=== PATIENT | female | born 1955 | race Caucasian/White ===

== ENCOUNTER 2022-08-14 14:30 | Outpatient (RCR) | payer MEDICARE, BC, SELFPAY | END 2022-08-17 08:18 | disposition home or self-care (01) | PROVIDERS: PCP Physician Assistant; Visit Provider Physician Assistant | DX: M25.551 Pain in right hip (principal); M77.11 Lateral epicondylitis, right elbow; Z51.89 Encounter for other specified aftercare | CPT/HCPCS: 97035; 97110; 97140; 97162; 97165; 97535; X5282 ==

== ENCOUNTER 2024-09-09 22:40 | Emergency (ER) | payer MEDICARE, BC, SELFPAY ==
--- OUTSIDE RECORDS SUMMARY | 2024-09-09 22:43 | XMS_ITS | Data Portability ---
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 We discussed etiology, activity modifications, home care, and other treatment options. Initially, it is recommended that the patient receive in-office treatment 1 times per week for 8 weeks at which time a re-evaluation will be performed to determine an appropriate change in plan. Initially, treatment will focus on joint manipulation to restore range of motion and reduce pain. We will slowly progress to therapeutic exercises and activities to improve function, strength, and stability may also be used as warranted. If the patient is not responding as expected, more invasive procedures will be discussed along with a referral. All considerations above were discussed with the patient and questions answered to satisfaction. If the patient should have any additional questions, or should the condition evolve or worsen, the patient should not hesitate to contact our office. Not available 05/01/2024 14:49:27 06/06/2024 06/06/2024 ASSESSMENT: Patient is a good candidate for conservative care and the prognosis is for a favorable outcome that achieves the patients' goals. We discussed etiology, activity modifications, home care, and other treatment options. Initially, it is recommended that the patient receive in-office treatment 1 times per week for 8 weeks at which time a re-evaluation will be performed to determine an appropriate change in plan. Initially, treatment will focus on joint manipulation to restore range of motion and reduce pain. We will slowly progress to therapeutic exercises and activities to improve function, strength, and stability may also be used as warranted. If the patient is not responding as expected, more invasive procedures will be discussed along with a referral. All considerations above were discussed with the patient and questions answered to satisfaction. If the patient should have any additional questions, or should the condition evolve or worsen, the patient should not hesitate to contact our office. Not available 06/07/2024 10:44:47 06/14/2024 06/14/2024 ASSESSMENT: Patient is a good candidate for conservative care and the prognosis is for a favorable outcome that achieves the patients' goals. We discussed etiology, activity modifications, home care, and other treatment options. Initially, it is recommended that the patient receive in-office treatment 1 times per week for 8 weeks at which time a re-evaluation will be performed to determine an appropriate change in plan. Initially, treatment will focus on joint manipulation to restore range of motion and reduce pain. We will slowly progress to therapeutic exercises and activities to improve function, strength, and stability may also be used as warranted. If the patient is not responding as expected, more invasive procedures will be discussed along with a referral. All considerations above were discussed with the patient and questions answered to satisfaction. If the patient should have any additional questions, or should the condition evolve or worsen, the patient should not hesitate to contact our office. Not available 06/14/2024 18:07:31 Plan of Treatment Reminders Order Date Submit Date Provider Last Modified By Organization Details Last Modified Time Details Appointments None record ed. Lab None record ed. Referral None record ed. Procedures None record ed. Surgeries None record ed. Imaging None record ed. Medication Orders None record ed. Patient TargetsNo targets recorded. Patient InstructionsNo instructions recorded. Reason for Referral None Reported. Problems Name Problem SNOMED Code Status Onset Date Resolution Date Notes Provider Name and Address Organization Details Recorded Time Neck pain 92593832 Active 2023 Russell Hunter DC [address] [place] [address], [place], [address] , [facility] 4 14:49:28 Cervical segmental dysfunction 946493276 Active 2023 Not Available [facility] 11:21:42 Thoracic segmental dysfunction 744261704 Active 2023 Russell Hunter DC [address] [place] [address], [place], [address] , [facility] 4 14:49:28 Lumbar segmental dysfunction 558730210 Active 2023 Russell Hunter [place] [address], [place], [address] , [facility] 4 14:49:28 Lesion of lumbar spine 901436390 Active 2023 Russell [place], [place] [address], [place], [address] , [facility] 4 14:49:29 Problem Notes None recorded. Procedures Surgical History Date Name Laterality Status Provider Name and Address Organization Details Recorded Time 5 10746: Spinal manipulation , 3 to 4 regions completed [facility] [place], [place] [address], [place], [address], [facility] 06/14/2024 18:07:30 5 67279: Spinal manipulation , 3 to 4 regions completed [facility] [place], [place] [address], [place], [address], [facility] 06/07/2024 10:44:47 4 96059: Spinal manipulation , 3 to 4 regions completed [facility] Janak [place], [place] [address], [place], [address], [facility] 05/01/2024 14:49:54 Imaging Results None recorded. Procedure Notes None recorded. Medical Equipment None Reported. Medications Name Sig Start Date Stop Date Status Note LastModified by Organization Details LastModified Time cephalexin 500 mg capsule TAKE ONE CAPSULE BY MOUTH TWICE DAILY for 3 days* active Not Available Not Available No t Available doxycycline hyclate 100 mg tablet TAKE ONE TABLET BY MOUTH TWICE DAILY BEFORE MEALS* active Not Available Not Available No t Available azithromycin 500 mg tablet TAKE ONE TABLET BY MOUTH EVERY 24 HOURS* active Not Available Not Available No t Available Vitals None Recorded Social History None recorded. Functional Status None recorded. Mental Status None recorded. Family History Nothing Reported. Medical History No medical history recorded. Gynecological HistoryNo gynecological history recorded. Obstetrics History GPAL:G 0 P 0 0 0 0 Past Encounters Encounter ID Performer Location Encounter Start Date Encounter Closed Date Diagnosis/Indication Diagnosis SNOMED-CT Code Diagnosis ICD10 Code Diagnosis Note [id number] Russell Hunter DC [facility] & [address] [facility] [place] [address] 05/01/2024 13:05:00 05/01/2024 14:53:34 Cervical segmental dysfunction 362030011 M99.01 Neck pain 48997583 M54.2 Thoracic s egmental dysfunction 779295269 M99.02 Lumbar seg mental dysfunction 322606421 M99.03 Lesion of lumbar spine 430294818 M99.01 [id number] Russell Hunter DC [facility] [address] [place] [address] 06/06/2024 17:17:13 06/07/2024 14:54:51 Cervical segmental dysfunction 728197395 M99.01 Neck pain 39883798 M54.2 Thoracic s egmental dysfunction 491741044 M99.02 Lumbar seg mental dysfunction 182569444 M99.03 Lesion of lumbar spine 429780794 M99.01 [id number] Russell Hunter DC [address] [place] [address] 06/14/2024 09:58:59 06/14/2024 18:13:24 Cervical segmental dysfunction 096938102 M99.01 Neck pain 36870084 M54.2 Thoracic s egmental dysfunction 607970944 M99.02 Lumbar seg mental dysfunction 846983988 M99.03 Lesion of lumbar spine 408596227 M99.01 Health Concerns Section Related Observation LastModified by Organization Detai ls LastModified Time None Recorded Concern Status LastModified by Organization Details LastModified Time None Recorded Advance Directives Directive None Recorded Payers Encounter Date Sequence Insurance Name Policy Number Policy Uribe Covered Member ID Uribe Member ID Guarantor Name 05/01/[address] [facility] [id number] Melissa Valdez [id number] Melissa Valdez 06/06/2024 2 [facility] [id number] Melissa Valdez [id number] Melissa Valdez 06/06/2024 1 [place] [employer] Melissa Valdez [id number] Melissa Valdez 06/14/2024 2 [facility] [id number] Melissa Valdez [id number] Melissa Valdez 06/14/2024 1 [place] [employer] [facility] Melissa Valdez [id number] Melissa Valdez Notes Date Note Type Note Provider Name and Address Organization Details Recorded Time 05/01/2024 text/html HPI - Cervical SpineReported bypatient.Location: midline Quality:aching Severity:moderate Duration:2 weeks Timing:gradual Alleviating Factors:ice Aggravating Factors:sitting Associated Symptoms:no numbness/tingling Patient presents with mid-back pain. Russell Janaktodd Hunter DC [address], [place], [address], [facility] 05/01/2024 14:50:09 06/06/2024 text/html HPI - Cervical SpineReported bypatient.Location: midline Quality:aching Severity:moderate Duration:2 weeks Timing:gradual Alleviating Factors:ice Aggravating Factors:sitting Associated Symptoms:no numbness/tingling Patient presents with mid-back pain. Russell Janaktodd Hunter [place] [address], [place], [address], [facility] 06/07/2024 10:45:15 06/14/2024 text/html HPI - Cervical SpineReported bypatient.Location: midline Quality:aching Severity:moderate Duration:2 weeks Timing:gradual Alleviating Factors:ice Aggravating Factors:sitting Associated Symptoms:no numbness/tingling Patient presents with mid-back pain. Russell Briceno ALEX Hunter [address], [place], [address], [facility] 06/14/2024 18:07:49 OBGyn Episode No OBEpisode recorded.
--- OUTSIDE RECORDS SUMMARY | 2024-09-09 22:43 | XMS_ITS | Clinical Summary ---
Author Organization [facility] Address [address] [place] [id number] Care Team Providers Care Process Pumper Name Role Phone Gabby Franco Primary Care Provider [phone] Allergies Active Allergy Reactions Criticality Noted Date Comments Amoxicillin Rash 10/10/2014 Homeopathic Products 08/13/2008 Dust Mites 08/13/2008 Fish Containing Products 08/13/2008 Tree Nut 08/13/2008 Benzocaine-Triclosan 05/16/2007 Medications multivitamin (MVI) tablet Take 1 tablet by mouth once daily. 0 05/01/2010 Active calcium carbonate-vitam in D3, 600 mg-125 unit, (CALCIUM 600 + D) tablet Take 1 tablet by mouth 2 times daily with meals. 0 07/15/2015 Active Lysine 1,000 mg tablet Take as needed for cold sores 0 12/03/2015 Active Flaxseed powd Two TBSP ground flaxseed per day 1 Bottle 11/17/2018 Active [id number]-EPA -Fish Oil 1,000 mg (120 mg-180 mg) cap Take 1 Capsule (1,000 mg) by mouth. 0 11/21/2020 Active Active Problems Problem Noted Date Diagnosed Date Redundant colon 06/03/2023 Actinic keratoses 06/03/2023 Hyperlipidemia 06/03/2023 History of depression 06/03/2023 Non-celiac gluten sensitivity 06/03/2023 Osteopenia 06/09/2022 Overview (06/09/2022): Bone density May 2022. Repeat 3-5 years. Cellulitis of skin 08/20/2019 Assessment & Plan (08/20/2019 4:02 PM CDT): Pinky finger on R hand has been red and swollen since about . L. pinky started getting red and swollen about August 04. Starting to get sores inside my mouth. Tried topical Cortizone - 10 on fingers. Trying benedryl or claritin since August 07. No relief. Have allergies, but can't pinpoint what this is No blisters. DIP joint distal, red, elizabet next to finger nail. Itched just one day. Asymmetric, not the whole tip. L hand is involved on top of finger. Now today tip of 3rd finger R. Mostly the pad. Bright red dot in one location. Tender. Areas of redness actually swollen and disfiguring the DIP joint however the whole joint does not appear to be inflamed. Hurts to bend joint some. No fever. Feels mostly in the skin. Skin is smooth. Not scaley. Red like a burn. No spreading redness. No streaking. No other rash. Has raynauds : some redness before but resolves. Some history of cold sores w eating wheat. Started after eating peanuts but no oral swelling/wheezing/ hives. No coughing. No other illness. Current oral sores feel similar to her eating bread. No other joints elsewhere. No vaginal symptoms . Mouth seems unrelated. Routine adult health maintenance 12/06/2018 Overview (01/17/2019): Incompete Colonoscopy 11/2018 redundant colon, recommend CT colonography CT colon 12/2018 normal, repeat every 5 years Bilateral low back pain 07/31/2014 Overview (07/31/2014): Disc space narrowing at L4-5 and L5-S1 Raynaud's syndrome 11/20/2009 Overview (11/20/2009): Primarily affects hands only. Pulmonary nodules 02/29/2008 Allergic rhinitis, cause unspecified 02/28/2008 Overview (01/26/2011): Contributes to pulmonary congestion 01/26/2011 Resolved Problems Problem Noted Date Diagnosed Date Resolved Date Depression, recurrent 06/02/20222023 Thyroid nodule 11/21/2018 06/03/2023 Overview (11/21/2018): Two on right side, US done November 2018. These were seen on old CT scans, nodules are very likely benign. Repeat US thyroid in one year. Plantar wart of right foot 09/14/2011 0 06/03/2023 Anemia, unspecified 01/26/2011 06/02/19 23 Fibroid 11/20/2009 06/02/2022 Overview (11/20/2009): asymptomatic Routine general medical exam ination at a health care facility 02/29/2008 02/03/2012 Overview (11/20/2009): colonoscopy 04/2008 recheck 10 yrs Viral warts, unspecified 02/29/2008 Upper back pain 02/28/2008 02/03/2012 Encounters Date Type Department Care Team Description 09/05/2024 6:56 AM CDT - 09/05/2024 11:59 PM CDT Hospital Encounter [facility] [address] [place] [address] Gabby Franco, Redundant colon; Screening for colon cancer 09/05/2024 Travel 08/16/2024 9:20 AM CDT Ancillary Procedure [facility] [address] [place] [address] 08/16/2024 8:20 AM CDT Office Visit [facility] [address] [place] [address] Gabby Franco DO Medicare ANNUAL (subsequent) Visit (68 year old, c/o vision changes, is seeing eye doctor on 08/21.); Immunization/Injecti on 08/16/2024 Travel from Last 3 Months Immunizations Immunization Administration Dates Next Due COVID-19 VACCINE SPIKEVAX (M ODERNA 50MCG/0.5ML) 12YO+ PFS 08/16/2024 COVID-19 vaccine ([employer] NTech 30mcg/0.3mL) 12YO+ BIVALENT PF, MDV 09/21/2022,03/30/2022 COVID-19 vaccine ([employer] NTech 30mcg/0.3mL) PF, MDV 04/25/2021,09/12/2020,08/22/2020 HepA-HepB (Twinrix) 11/28/2002,06/23/2002,2002 Influenza, Inactivated IIV3 (Age 65+ Years) Preserv Free 05/29/2024 Pneumococcal Conj 20-valent (Prevnar 20) 025 Td (Age >=7 Years) 07/04/2004,01/13/1995 Tdap 11/21/2020,01/26/2011 Typhoid (injectable) 05/29/2024 Typhoid, Unspecified 05/23/2002 Zoster (Shingrix-RZV, recombinant) 01/23/2021, Family History Medical History Relation Name Comments Hyperlipidemia Brother 3 Good Health Daughter 2 Cancer Father Deng Skin Other Father Brook Parkinson's; Hi p Fx; CVA Stroke Father Brook Stroke Maternal Grandfather Heart Disease Maternal Grandmother Cancer Mother Summer Skin Stroke Mother Summer Heart Disease Paternal Grandfather 30 yea r Heart Disease Paternal Grandmother 30 yo Other Paternal Grandmother hip fx Stroke Paternal Grandmother Hyperlipidemia Sister 3 Alcohol/Drug Son 2 alcoholic: andres n since 04/2009 Cancer-breast No Family History Cancer-ovarian No Family History Relation Name Status Comments Brother 1 Shon Alive Brother 2 Dewayne Alive Brother 3 Daughter 1 Alive Daughter 2 Father Deng (Age 69) Blood Clot p Hip Fracture Maternal Grandfather (Age 66) st roke Maternal Grandmother Mother Summer (Age 76) Blood Clot p Hip Fracture Paternal Grandfather Paternal Grandmother Sister 1 Marisa Alive Sister 2 Roxanna Alive Sister 3 Son 1 Alive Son 2 Social History Tobacco Use Types Packs/Day Years Used Date Smoking Tobacco: Never Smokeless Tobacco: Never Tobacco Cessation:Counseling Given: Yes Alcohol Use Standard Drinks/Week Comments Yes 0 (1 standard drink = 0.6 oz pur e alcohol) rare: socially PHQ-2 Answer Date Recorded PHQ-2 TOTAL SCORE 0 08/16/2024 Social Connections Answer Date Recorded Do you often feel lonely or isolated from those around you? 0 08/30/2023 Financial Resource Strain Answer Date R ecorded Difficulty of Paying Living Expenses 3 08/30/2023 Difficulty of Paying Living Expenses Not on file 08/30/2023 Food Insecurity Answer Date Recorded Do you worry your food will run out before you are able to buy more? 1 08/30/2023 Transportation Needs Answer Date Record ed Does lack of transportation keep you from medica l appointments? 1 08/30/2023 Does lack of transportation keep you from work, meetings or getting things that you need? 1 08/30/2023 Housing Stability Answer Date Recorded What is your housing situation today? 1 08/30/2023 Utilities Answer Date Recorded Do you have trouble paying f or utilities (for example, heat, electricity, water, phone)? 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 Not on file Not on file Obstetrics History Para Term AB IAB SAB Ectopic Multiple Livin g Live Births 2 2 2 2 2 Date Outcome GA Total Labor Labor/2nd/3rd Weight Sex Type Anes PTL Sherry A1 A5 Name Clin 09/17 Term 40w 0d M Vag Living Sarabjit 08/08 Term 40w 0d F Vag Living Aicha Last Filed Vital Signs Vital Sign Reading Time Taken Comments Blood Pressure 105/72 08/16/2024 8:24 AM CDT Pulse 53 08/16/2024 8:24 AM CDT Temperature 36.9 C (98.4 F) 08/30/2023 4:13 PM CDT Respiratory Rate 16 11/25/2015 1:32 PM CDT Oxygen Saturation 100% 05/29/2024 9:31 AM PARLIAMENTARY LIBRARIAN Inhaled Oxygen Concentration - - Weight 68.3 kg (150 lb 9.6 oz) 08/16/2024 8:24 A M CDT Height 170.8 cm (5' 7.24) 08/16/2024 8:24 AM CD T Body Mass Index 23.42 08/16/2024 8:24 AM CDT Plan of Treatment Health Maintenance Due Date Last Done Comments BMI (ht and wt on same day) for age 18+ 08/16/2025 08/16/2024, 06/03/2023, 06/02/2022, Additional history exists Depression screening for age 12+ 08/16/2025 08/16/2024, 06/03/2023, 08/10/2022, Additional history exists Mammogram for age 45-75 08/16/2025 08/17/19, 06/03/2023, 06/02/2022, Additional history exists Medicare Wellness for age 65+ 08/17/2025, 06/03/2023, 06/02/2022 Lipids for age 45-75 06/03/2028 06/03/2023, 06/02/2022, 11/21/2020, Additional history exists CT Colonography for age 45-75 09/05/2029, 01/17/2019, 12/23/2018 (Completed outside of [facility]), Additional history exists Tetanus booster 11/21/2030 11/21/2020, 01/08, 07/04/2004, Additional history exists RSV vaccine for adults or (1 - 1-dose 75+ series) 12/03/2031 Hepatitis C screening for ag e 18-79 Completed 12/01/2013 Tdap Completed 11/21/2020, 01/26/2011 Zoster (shingles) series for age 50+ Completed 01/23/2021, 11/21/2020 DEXA/DXA scan for age 65+ Completed 06/03/2022, COVID-19 vaccine series Completed 08/17/19, 01/25/2024, 04/09/2023, Additional history exists Pneumococcal series for age 50+ Completed Procedures Procedure Name Priority Date/Time Associated Diagnosis Comments CT ABDOMEN PELVIS COLONOGRAPHY DIAGNOSTIC WO Routine 09/05/2024 7:42 AM CDT Redundant colon Screening for colon cancer XR MAMMO BILAT SCREENING Routine 08/16/2024 9:36 AM CDT Visit for screening mammogram MAGNESIUM Routine 08/16/2024 9:06 AM CDT Nausea COMP METABOLIC PANEL Routine 08/16/2024 9:06 AM CDT Nausea LIPID PANEL W REFLEX MEASURED LDL Routine 06/03/2023 9:27 AM PARLIAMENTARY LIBRARIAN Hyperlipidemia, unspecified hyperlipidemia type XR DXA BONE DENSITY 2 SITES AXIAL Routine 06/03/2022 9:55 AM PARLIAMENTARY LIBRARIAN Menopause ANTI HCV Routine 12/01/2013 2:50 PM CDT Need for hepatitis C screening test from Last 3 Months or Most Recently Relevant to Health Maintenance Results * CT ABDOMEN PELVIS COLONOGRAPHY DIAGNOSTIC WO (09/05/2024 7:42 AM CDT) Anatomical Region Laterality Modality Abdomen, Pelvis Computed Tomogra phy 09/06/2024 9:25 AM CDT Addenda Addendum by Josh Barnes MD on 09/06/2024 3:25 PM CDT INDICATION: Colon cancer screen. Redundant colon. TECHNIQUE: CT SCAN OF THE ABDOMEN AND PELVIS CT COLONOSCOPY PROTOCOL Cathartic prep. No IV contrast. Supine and prone image volumes were obtained. Carbon dioxide insufflation was performed through a rectal catheter. Images were reviewed in 2D, and 3D visualization was performed using a [employer] workstation. FINDINGS: SCAN QUALITY: Markedly redundant colon. Moderate retained fluid. Portions of the sigmoid colon are not completely distended. The prone images show portions of the transverse colon and sigmoid which are not completely distended. POLYPS: No significant colonic polyps. EXTRACOLONIC STRUCTURES: Lung bases are clear. Liver, spleen, pancreas, adrenal glands, kidneys: Unremarkable. Slightly ectopic right kidney Lymph nodes: No adenopathy. Small bowel: Normal caliber. Pelvis: Bladder is unremarkable. A 4.5 centimeter soft tissue density right-sided exophytic well-circumscribed mass is present from the uterus which is likely a fibroid. IMPRESSION: 1. No colonic polyps identified. 2. Limitations of the study are described above. 3. 4.5 centimeter probable right uterine fibroid this was noted on prior exam 06/09/2022 measured at 2.1 centimeters. Follow-up pelvic ultrasound as clinically indicated. C-RADS: CT Colonography C-RADS Category: C1, E2 Colonic classification C0 : inadequate study C1 : normal colon / benign lesion - routine screening every 5 to 10 years to be continued C2 : indeterminate polyp - surveillance or colonoscopy 6 - 9 mm in diameter LESS THAN 3 in number C3 : possibly advanced adenoma - follow up colonoscopy GREATER THAN 10 mm in diameter GREATER THAN 3 in number with each 6 - 9 mm C4 : colonic mass likely malignant - urgent surgical referral Has associated luminal narrowing Has extra colonic extension Extra-colonic classification E0 : limited exam E1 : normal exam or normal variant E2 : clinically unimportant finding (e.g., simple liver cyst, vertebral hemangioma) -no work up required E3 : likely unimportant or incompletely characterized finding (e.g., minimally complex renal cyst) -referral depends on local center. E4 : potentially important finding (e.g., solid renal mass) - communicate to referring physician Please note that all CT scans at this facility use dose modulation, iterative reconstruction, and/or weight-based dosing when appropriate to reduce radiation dose to as low as reasonably achievable. 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 Dictated by Josh Barnes MD @ Sep 06 2024 3:24PM (Electronically Signed) Impressions 09/06/2024 9:25 AM CDT 1. No colonic polyps identified. 2. Limitations of the study are described above. 3. 4.5 centimeter probable right uterine fibroid this was noted on prior exam 06/09/2022 measured at 2.1 centimeters. Follow-up pelvic ultrasound as clinically indicated. C-RADS: CT Colonography C-RADS Category: C1, E2 Colonic classification C0 : inadequate study C1 : normal colon / benign lesion - routine screening every 5 to 10 years to be continued C2 : indeterminate polyp - surveillance or colonoscopy 6 - 9 mm in diameter LESS THAN 3 in number C3 : possibly advanced adenoma - follow up colonoscopy GREATER THAN 10 mm in diameter GREATER THAN 3 in number with each 6 - 9 mm C4 : colonic mass likely malignant - urgent surgical referral Has associated luminal narrowing Has extra colonic extension Extra-colonic classification E0 : limited exam E1 : normal exam or normal variant E2 : clinically unimportant finding (e.g., simple liver cyst, vertebral hemangioma) -no work up required E3 : likely unimportant or incompletely characterized finding (e.g., minimally complex renal cyst) -referral depends on local center. E4 : potentially important finding (e.g., solid renal mass) - communicate to referring physician Please note that all CT scans at this facility use dose modulation, iterative reconstruction, and/or weight-based dosing when appropriate to reduce radiation dose to as low as reasonably achievable. Dictated by Josh Barnes MD @ 09/06/2024 9:25:58 AM (Electronically Signed) Narrative 09/06/2024 9:25 AM CDT For Patients: As a result of the Cures Act, medical imaging exams and procedure reports are released immediately into your electronic medical record. You may view this report before your referring provider. If you have questions, please contact your health care provider. INDICATION: Colon cancer screen. Redundant colon. TECHNIQUE: CT SCAN OF THE ABDOMEN AND PELVIS CT COLONOSCOPY PROTOCOL Cathartic prep. No IV contrast. Supine and prone image volumes were obtained. Carbon dioxide insufflation was performed through a rectal catheter. Images were reviewed in 2D, and 3D visualization was performed using a [employer] workstation. FINDINGS: SCAN QUALITY: Markedly redundant colon. Moderate retained fluid. Portions of the sigmoid colon are not completely distended. The prone images show portions of the transverse colon and sigmoid which are not completely distended. POLYPS: No significant colonic polyps. EXTRACOLONIC STRUCTURES: Lung bases are clear. Liver, spleen, pancreas, adrenal glands, kidneys: Unremarkable. Slightly ectopic right kidney Lymph nodes: No adenopathy. Small bowel: Normal caliber. Pelvis: Bladder is unremarkable. A 4.5 centimeter soft tissue density right-sided exophytic well-circumscribed mass is present from the uterus which is likely a fibroid. Procedure Note Josh Barnes MD - 09/06/2024 For Patients: As a result of the Cures Act, medical imagingexams and procedure reports are released immediately into your electronicmedical record. You may view this report before your referring provider.If you have questions, please contact your health care provider. INDICATION: Colon cancer screen. Redundant colon. TECHNIQUE: CT SCAN OF THE ABDOMEN AND PELVIS CT COLONOSCOPY PROTOCOL Cathartic prep. No IV contrast. Supine and prone image volumes were obtained. Carbon dioxide insufflation was performed through a rectal catheter. Images were reviewed in 2D, and 3D visualization was performed using [employer] workstation. FINDINGS: SCAN QUALITY: Markedly redundant colon. Moderate retained fluid. Portions of the sigmoidcolon are not completely distended. The prone images show portions of thetransverse colon and sigmoid which are not completely distended. POLYPS: No significant colonic polyps. EXTRACOLONIC STRUCTURES: Lung bases are clear. Liver, spleen, pancreas, adrenal glands, kidneys: Unremarkable. Slightlyectopic right kidney Lymph nodes: No adenopathy. Small bowel: Normal caliber. Pelvis: Bladder is unremarkable. A 4.5 centimeter soft tissue density right- sidedexophytic well-circumscribed mass is present from the uterus which islikely a fibroid. IMPRESSION: 1. No colonic polyps identified. 2. Limitations of the study are described above. 3. 4.5 centimeter probable right uterine fibroid this was noted on priorexam 06/09/2022 measured at 2.1 centimeters. Follow-up pelvic ultrasoundas clinically indicated. C-RADS: CT Colonography C-RADS Category: C1, E2 Colonic classification C0 : inadequate study C1 : normal colon / benign lesion - routine screening every 5 to 10 yearsto be continued C2 : indeterminate polyp - surveillance or colonoscopy 6 - 9 mm in diameter LESS THAN 3 in number C3 : possibly advanced adenoma - follow up colonoscopy GREATER THAN 10 mm in diameter GREATER THAN 3 in number with each 6 - 9 mm C4 : colonic mass likely malignant - urgent surgical referral Has associated luminal narrowing Has extra colonic extension Extra-colonic classification E0 : limited exam E1 : normal exam or normal variant E2 : clinically unimportant finding (e.g., simple liver cyst, vertebralhemangioma) -no work up required E3 : likely unimportant or incompletely characterized finding (e.g.,minimally complex renal cyst) -referral depends on local center. E4 : potentially important finding (e.g., solid renal mass) - communicateto referring physician Please note that all CT scans at this facility use dose modulation,iterative reconstruction, and/or weight-based dosing when appropriate toreduce radiation dose to as low as reasonably achievable. Dictated by Josh Barnes MD @ 09/06/2024 9:25:58 AM (Electronically Signed) Gabby Franco DO CT Edited Res ult - Final * XR MAMMO BILAT SCREENING (08/16/2024 9:36 AM CDT) Anatomical Region Laterality Modality BREASTS, Breast Left, Breast Right Bilateral Mammography Impressions 08/16/2024 1:44 PM CDT There is no radiographic evidence for malignancy. Recommend annual mammograms. MAMMOGRAM ASSESSMENT: ACR 1 Negative PATIENTS: You will also receive a letter with your examination results in an easy to read format. If you have questions about your results, please contact your referring provider. Narrative 08/16/2024 1:44 PM CDT For Patients: As a result of the Cures Act, medical imaging exams and procedure reports are released immediately into your electronic medical record. You may view this report before your referring provider. If you have questions, please contact your health care provider. XR MAMMO BILAT SCREENING [[id number]] CLINICAL HISTORY: This is an asymptomatic 68 y.o. patient. INDICATION FOR EXAM: Mammogram Screening. TECHNIQUE: CC and MLO views were obtained. This study was evaluated with the assistance of Computer-Aided Detection. COMPARISON FILM: Yes 06/03/23 [facility] 06/02/22 [facility] FINDINGS: There are scattered areas of fibroglandular density. There are no dominant masses, suspicious micro calcifications or areas of architectural distortion. Gabby Franco DO MAMMO Final Resu lt * MAGNESIUM (08/16/2024 9:06 AM CDT) MAGNESIUM 2.3 1.5 - 2.5 mg/dL [facility] Blood BLOOD SPECIMEN / Unknown 08/16/2024 9:06 AM CDT 08/16/2024 9:07 AM CDT Gabby Franco DO CHEMISTRY Final Resu lt [facility] [address] [place] [address], Gaby [facility] [address] [place] [address] * COMP METABOLIC PANEL (08/16/2024 9:06 AM CDT) [facility] GLUCOSE 82 65 - 99 mg/dL [facility] Comment: Fasting reference interval UREA NITROGEN (BUN) 13 7 - 25 mg/dL [facility] CREATININE 0.94 0.50 - 1.05 mg/dL [facility] EGFR 67 > OR = 60 mL/min/1. 73m2 [facility] BUN/CREATININE RATIO SEE NOTE: - (calc) [facility] Comment: Not Reported: BUN and Creatinine are within reference range. SODIUM 142 135 - 146 mmol/L [facility] POTASSIUM 4.5 3.5 - 5.3 mmol/L [facility] CHLORIDE 104 98 - 110 mmol/L [facility] CARBON DIOXIDE 30 20 - 32 mmol/L [facility] CALCIUM 9.5 8.6 - 10.4 mg/dL [facility] PROTEIN, TOTAL 7.0 6.1 - 8.1 g/dL [facility] ALBUMIN 4.5 3.6 - 5.1 g/dL [facility] GLOBULIN 2.5 1.9 - 3.7 g/dL (calc) [facility] ALBUMIN/GLOBULIN RATIO 1.8 1.0 - 2.5 (calc) [facility] BILIRUBIN, TOTAL 0.8 0.2 - 1.2 mg/dL [facility] ALKALINE PHOSPHATASE 61 37 - 153 U/L [facility] AST 18 10 - 35 U/L [facility] ALT 12 6 - 29 U/L [facility] Blood BLOOD SPECIMEN / Unknown 08/16/2024 9:06 AM CDT 08/16/2024 9:07 AM CDT Gabby Diana Franco DO CHEMISTRY Final Resu lt [facility] [address] [place] [address], [place] [phone] [facility] [address] [place] [address] * (ABNORMAL) LIPID PANEL W REFLEX MEASURED LDL (06/03/2023 9:27 AM PARLIAMENTARY LIBRARIAN) [facility] CHOLESTEROL,TOTAL 268(H) 100 - 199 mg/dL 06/03/2023 5:38 PM PARLIAMENTARY LIBRARIAN [facility] Comment: Cholesterol, Total Reference Ranges Desirable <200 mg/dL Borderline 200-239 mg/dL High >=240 mg/dL TRIGLYCERIDES 88 <150 mg/dL 06/03/2023 5:38 PM PARLIAMENTARY LIBRARIAN [facility] HDL CHOLESTEROL 78 >40 mg/dL 5:38 PM PARLIAMENTARY LIBRARIAN [facility] NON-HDL CHOLESTEROL 190(H) <145 mg/dl 06/03/2023 5:38 PM PARLIAMENTARY LIBRARIAN [facility] CHOL/HDL RATIO 3.44 <4.50 06/03/2023 5:38 PM PARLIAMENTARY LIBRARIAN [facility] LDL CHOLESTEROL 172(H) <=130 mg/dL 06/03/2023 5:38 PM PARLIAMENTARY LIBRARIAN [facility] VLDL CHOLESTEROL 18 <=30 mg/dL 06/03/2023 5:38 PM PARLIAMENTARY LIBRARIAN [facility] PROVIDER ORDERED STATUS RANDOM 06/03/2023 5:38 PM PARLIAMENTARY LIBRARIAN [facility] Blood BLOOD SPECIMEN / Unknown Venipuncture / Unknown 06/03/2023 9:27 AM PARLIAMENTARY LIBRARIAN 06/03/2023 9:29 AM PARLIAMENTARY LIBRARIAN Gabby Franco DO CHEMISTRY Final Resu lt [facility] [address] [place] [id number], [place] * (ABNORMAL) XR DXA BONE DENSITY 2 SITES AXIAL (06/03/2022 9:55 AM PARLIAMENTARY LIBRARIAN) Anatomical Region Laterality Modality Spine, HIPS, HIPL, HIPR Other Impressions 06/09/2022 7:52 AM PARLIAMENTARY LIBRARIAN Osteopenia. RECOMMENDATIONS: The National Osteoporosis Foundation recommends pharmacologic treatment for patients with T-scores of -2.5 or less, patients with prior history of fragility fractures, or patients with 10-year probability of greater than 3% at hips or greater than 20% of suffering major osteoporotic fractures. Recommend continued optimization of calcium and vitamin D intake through dietary means and/or supplementation and regular exercise. Repeat scan recommended in 3-5 years. Ladan Chen PA-C [facility] 06/09/2022 Narrative 06/09/2022 7:52 AM PARLIAMENTARY LIBRARIAN For Patients: Results are automatically released to your [employer] account once available, in compliance with federal regulations. This means that you may see your results before your provider has had a chance to review them. Please allow 2-3 business days for your provider to comment on the results. XR DXA Bone Mineral Density (BMD) EXAM LOCATION: [facility] [address] [facility] [address] PATIENT NAME: Melissa Valdez DATE OF : 1955 EXAM DATE: 06/03/2022 REQUESTING PROVIDER: Azra Vaughn PA GENDER AT : female HEIGHT: 5' 6.5 (06/02/2022) WEIGHT: 154 lb (06/02/2022) MENOPAUSAL STATUS: Postmenopausal RACE/ETHNICITY: White RISK FACTORS: White Race CURRENT MEDICATION FOR BONE LOSS: NONE INDICATION: Post-Menopause and Follow-up of normal DXA COMPARISON DATE(S): 2015 DXA scans are compared to prior studies for a patient only when the two (or more) studies were performed on the same scanner. It is not possible to compare data generated on one scanner to data from another because there are not standards in DXA equipment. This applies even if the two scanners are made by the same creative coordinator. PROCEDURE: Dual-energy x-ray absorptiometry performed with routine technique. Reporting is completed in the form of a T-score. The T-score represents the standard deviation from peak bone mass based on young healthy adult. A Z-score is used for diagnosis in premenopausal women, and for men under the age of 50. FINDINGS: RESULT LUMBAR SPINE L1 - L2 BMD: 0.892 g/cm2 T-Score: - 2.3 Z-Score: - 0.9 Change from prior in 2016: Decrease 7.9%. RESULTS FEMUR Left femoral neck BMD: 0.870 g/cm2 T-Score: - 1.2 Z-Score: + 0.2 Change from prior in 2016: Decrease 9.4%. Right femoral neck BMD: 0.821 g/cm2 T-Score: - 1.6 Z-Score: - 0.2 Change from prior in 2016: Decrease 12.4%. Left hip BMD: 0.919 g/cm2 T-Score: - 0.7 Z-Score: + 0.4 Change from prior in 2016: Increase 0.7%. Right hip BMD: 0.829 g/cm2 T-Score: - 1.4 Z-Score: - 0.3 Change from prior in 2016: Decrease 6.7%. WHO criteria: Normal: T-score at or above -1 SD Osteopenia: T-score between -1.1 and -2.4 SD Osteoporosis: T-score at or below -2.5 SD FRAX RISK CALCULATION (USED FOR OSTEOPENIA ONLY): 10-year probability of major osteoporotic fracture: 17.3%. 10-year probability of hip fracture: 1.2%. Azra YOO DEXA Final Resu lt * ANTI HCV (12/01/2013 2:50 PM CDT) HEPATITIS C ANTIBODY Non-Reacti ve Non-Reacti ve 12/01/2013 8:30 PM CDT [facility] Blood specimen (specimen) BLOOD SPECIMEN / Unknown Venipuncture / Unknown 12/01/2013 2:50 PM CDT 12/01/2013 2:50 PM CDT [facility] - 12/01/2013 8:30 PM CDT Antibodies to HCV not detected; does not exclude the possibility of exposure to HCV. Yen Brian FERRYBOAT OPERATOR HELPER SEND OUTS F inal Result [facility] [address] [place] [address], from Last 3 Months or Most Recently Relevant to Health Maintenance Insurance [place] ONLY MEDICARE PART B HB ONLY [place] HB ONLY BL[place] BL[place] MR PB ONLY [id number] [place] [address] [employer] Advance Directives Documents on File Type Date Recorded Patient Logistics And Planning Manager Expl anation Healthcare Directive 07/03/2020 021 Care Teams Process Pumper Relationship Specialty Start Date End Date Gabby Franco DO Orestes [facility] [place] [address] PCP - General Family Practice 06/03/23
--- OUTSIDE RECORDS SUMMARY | 2024-09-09 22:43 | XMS_ITS | Clinical Summary ---
Author Organization [facility] Address [address], [place] [address] Care Team Providers Care Process Control Technician Name Role Phone Needs Pcp, Assignment Primary Care Provider Source Comments You are receiving this document as you are listed as the primary care provider,follow-up provider, or the patient has been referred to you for consultation.This is in compliance with the Medicare andMedicaid EHR Incentive Program,which states Providers who transition their patient to another setting of careor provider of care or refers their patient to another provider of care shouldprovide summary care record for each transition of care or referral. [facility] Allergies Active Allergy Reactions Criticality Noted Date Comments Amoxicillin Rash 10/10/2014 Benzocaine-Triclosan Unknown 05/16/2007 Homeopathic Products Unknown 08/13/2008 Medications ibuprofen (MOTRIN) 200 MG tablet Take 1-2 Tablets (200-400 mg) by mouth every 4 hours as needed for Pain. Active Social History Tobacco Use Types Packs/Day Years Used Date Smoking Tobacco: Never Assessed Comments Unknown Sex and Gender Information Value Date Recorded Sex Assigned at Not on file Legal Sex Female 4:12 AM CDT Gender Identity Not on file Sexual Orientation Not on file Last Filed Vital Signs Vital Sign Reading Time Taken Comments Blood Pressure - - Pulse - - Temperature 36.5 C (97.7 F) 12/16/2023 2:42 PM CDT Respiratory Rate - - Oxygen Saturation - - Inhaled Oxygen Concentration - - Weight 69.4 kg (153 lb) 12/16/2023 2:42 PM CDT Height 168.9 cm (5' 6.5) 12/16/2023 2:42 PM CDT Body Mass Index 24.32 12/16/2023 2:42 PM CDT Plan of Treatment Health Maintenance Due Date Last Done Comments Hep C Screening (Preventive Services) 1955 Cholesterol 2001 Pneumococcal Vaccine 50+ Yrs (1 of 1 - PCV) 2006 Colon Cancer Screening Plan Due 05/02/2008 05/01/2008 Mammogram 02/02/2013 02/03/2012 Medicare Annual Wellness Visit 06/02/2023 06/02/2022 COVID-19 Vaccine ( season) 2024 04/09/2023, 09/21/2022, 03/30/2022, Additional history exists Influenza Vaccine (Season Ended) 2025 DTaP/Tdap/Td Vaccine (3 - Tdap) 11/21/2030 11/21/2020, 01/26/2011, 07/04/2004, Additional history exists RSV Vaccine (1 - 1-dose 75+ series) 12/03/2031 HepA Vaccine Aged Out 11/28/2002, 06/10, 05/23/2002 No longer eligible based on patient's age to complete this topic Zoster/Shingles Vaccine Completed 01/23/2021, 11/21 Dexa Completed 06/03/2022 HepB Vaccine Aged Out No longer eligi ble based on patient's age to complete this topic Hib Vaccine Aged Out No longer eligi ble based on patient's age to complete this topic IPV (Polio) Vaccine Aged Out No longe r eligible based on patient's age to complete this topic MCV4 Vaccine Aged Out No longer eligi ble based on patient's age to complete this topic Meningococcal B Vaccine Aged Out No l onger eligible based on patient's age to complete this topic Insurance [facility] [place] BLUE MEDICARE MANAGED CARE BCBS [id number] [facility] [place] [address] Care Teams Process Control Technician Relationship Specialty Start Date End Date Needs Pcp, [place] [address] PCP - General 12/17/23
[2024-09-09 22:47] VITALS: BP 123/81; PULSE 62; RESP 16; TEMP 36.5; O2SAT 99; BMI 23.6
--- NOTE | 2024-09-09 23:37 | ED_ITS ---
HPI - General Adult General Chief complaint: Eye Problems Stated complaint: flashes of light in eyes Time Seen by Provider: 09/09/24 23:35 History of Present Illness HPI narrative: Patient reports seeing white fuzzy spots of light around 21 :30. In triage, Patient still sees a floater in L eye but no more flashes. Patient denies headache, blurred vision, nausea or vomiting, dizziness or any trauma. Neuro intact, no cardiac or neuro history but family hx of stroke. No abnormal gait, bilateral strength and movement intact . 68-year-old woman presenting to the emergency department with concern of seeing fuzzy spots of light in her eyes about an hour and a half prior to this interview. She describes it like walking through a field of or a Swarm of gnats. More noticeable to the right but could not say whether was right or left or both eyes that were affected. Does have a history of floaters and now left with a new floater in the left eye somewhat centrally. No more flashes. No headache. No focal weakness. No dizziness. No history of CVA. No diplopia Related Data Previous Rx's ?Medication ?Instructions ?Recorded estradiol 10 mcg vaginal tablet 10 mcg vaginal 2XW #24 tabs 06/15/22 (Yuvafem) Allergies Allergy/AdvReac Type Severity Reaction Status Date / Time benzocaine Allergy Mild Twitching Verified 08/23/23 17:27 peanut oil Allergy Mild Congested Verified 08/23/23 17:27 Penicillins Allergy Unknown Verified 08/23/23 17:27 Review of Systems Status of ROS: Reports: 6 or more systems reviewed and unremarkable except as noted in History and below PFSH PFS Medical History Pulmonary nodule ?R91.1 - Solitary pulmonary nodule (ICD-10) Thyroid nodule ?E04.1 - Nontoxic single thyroid nodule (ICD-10) Surgical History (Updated 06/15/22 @ 14:19 by Effie Coats MD) History of lipoma (08/23/14) ?Z86.018 - Personal history of other benign neoplasm (ICD-10) Social History Narrative: , 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, 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 Highest level of school completed/degree received: Master's degree Physical activity type: walking, bicycling and yoga How many days of moderate to strenuous exercise, like a brisk walk, did you do in the last 7 days: 7 Smoking Status: Never smoker Do you use any of these nicotine containing products: None Second hand tobacco smoke exposure: No How often do you have a drink containing alcohol: never How often do you have six or more drinks on one occasion: Never AUDIT-C Alcohol total score: 0 Non-prescribed substance use: denies use Are you now , , , , never or living with a partner: Social isolation score (0-1 are the most socially isolated patients): 1 Do you think of yourself as: straight/heterosexual Gender Identity: female Are you currently sexually active: No (Dyspareunia following menopause) Exam Narrative: Exam Narrative: Pleasant. Good energy. NAD. Moving all extremities without difficulty. Head is atraumatic. Pupils are 3-4 mm and equal and briskly reactive. Funduscopic exam while limited looks to be WNL. Extraocular movements are full. No hyphema. No anterior chamber floaters appreciated. Neck is supple nontender. Cranial nerves 2-12 intact. Moving all extremities without difficulty. Const: Vital Signs, click to edit/add: Vital Signs - 24 hr 09/09/24 22:47 Temperature 97.7 F Pulse Rate [Left P ulse Oximeter] 62 Respiratory Rate 16 Blood Pressure [Le ft Upper Arm] 123/81 Pulse Oximetry 99 Oxygen Delivery Me thod Room Air Documenting provider has reviewed patient's vital signs: yes Course Vital Signs Vital signs: Initial Vital Signs Temperature 97.7 F 09/09/24 22:47 Temperature Source Temporal Artery Scan 09/09/24 22:47 Pulse Rate 62 09/09/24 22:47 Respiratory Rate 16 09/09/24 22:47 Blood Pressure 123/81 09/09/24 22:47 Blood Pressure Mean 95 09/09/24 22:47 Blood Pressure Position Sitting 09/09/24 22:47 Pulse Oximetry 99 09/09/24 22:47 Oxygen Delivery Method Room Air 09/09/24 22:47 Vital Signs Temperature 97.7 F 09/09/24 22:47 Pulse Rate 62 09/09/24 22:47 Respiratory Rate 16 09/09/24 22:47 Blood Pressure 123/81 09/09/24 22:47 Pulse Oximetry 99 09/09/24 22:47 Oxygen Delivery Method Room Air 09/09/24 22:47 Temperature 97.7 F 09/09/24 22:47 Pulse Rate 62 09/09/24 22:47 Respiratory Rate 16 09/09/24 22:47 Blood Pressure 123/81 09/09/24 22:47 Pulse Oximetry 99 09/09/24 22:47 Oxygen Delivery Method Room Air 09/09/24 22:47 Medical Decision Making MDM Narrative Medical decision making narrative: As described I am more concerned about a retinal issue, possibly detachment though there is not a loss of vision, as opposed to deeper cerebrovascular event. I do not think this represents a vitreous hemorrhage. Not demonstrating posterior circulation symptoms. There is underlying history of Raynaud's. Reassuring visual acuity. Did attempt to reach her eye clinic. Was not successful here. This eye clinic though is local and she could follow up in about 30 hours I think. Discussed options for imaging as well. Limited at this time of night to CT. See patient discharge plan for further discussion Please call 1st thing Wednesday morning for an appointment with your eye clinic. Avoid heavy exertional activity until re-evaluated. Return for marked increase/intensifying symptoms, any loss of vision, new and focal weakness, intense headache. Medical Records Medical records reviewed: Yes I reviewed the patient's medical records Discharge Plan Discharge Clinical Impression: Sees flashes of light, Visual floaters Patient Disposition: Home, Self-Care Condition: Improved Additional Instructions: Please call 1st thing Wednesday for an appointment with your eye clinic. Avoid heavy exertional activity until re-evaluated. Return for marked increase/intensifying symptoms, any loss of vision, new and focal weakness, intense headache. Prescriptions: No Action estradiol [Yuvafem] 10 mcg tablet 10 mcg vaginal 2XW Qty: 24 3RF Follow Up/Referrals: Azra Vaughn PA [Primary Care Provider] - Stand Alone Forms: MyHealth Info Instructions
--- OUTSIDE RECORDS SUMMARY | 2024-09-10 00:14 | XMS_ITS | Clinical Summary ---
Author Organization [facility] Address [address] [address] Care Team Providers Care Upholstery Auto Trimmer Name Role Phone Needs Pcp, Assignment Primary [...] each transition of care or referral. [facility] Allerg[facility] Active Allergy Reactions Criticality Noted Date [...] patient's age to complete this topic Insurance [facility] [place] BLUE MEDICARE MANAGED CARE BCBS [id number] [facility] [place] [address] Care Teams Upholstery Auto Trimmer Relationship Specialty Start Date End Date Needs Pcp, [place] [address] PCP - General 12/17/23
--- OUTSIDE RECORDS SUMMARY | 2024-09-10 00:14 | XMS_ITS | Clinical Summary ---
Author Organization [employer] [facility] Address [address] [place] [address] Care Team Providers Care Pulley Maintainer Name Role Phone Gabby Franco Primary Care Provider [phone] Allergies Active Allergy Reactions Criticality Noted Date [...] flaxseed per day 1 Bottle 11/17/2018 Active [id number] -Fish Oil 1,000 mg (120 mg-180 mg) [...] - 09/05/2024 11:59 PM CDT Hospital Encounter [facility] [address] [place] [address] Gabby Franco, Redundant colon; Screening for colon cancer 09/05/2024 Travel 08/16/2024 9:20 AM CDT Ancillary Procedure [facility] [address] [place] [address] 08/16/2024 8:20 AM CDT Office Visit [facility] [address] [place] [address] Gabby Franco DO Medicare ANNUAL (subsequent) Visit (68 year old, c/o vision changes, is seeing eye doctor on 08/21.); Immunization/Injecti on 08/16/2024 Travel from Last 3 Months Immunizations Immunization Administration Dates Next Due COVID-19 VACCINE SPIKEVAX (M ODERNA 50MCG/0.5ML) 12YO+ PFS 08/16/2024 COVID-19 vaccine (TickTickTickets NTech 30mcg/0.3mL) 12YO+ BIVALENT PF, MDV 09/21/2022,03/30/2022 COVID-19 vaccine (FastlyBio NTech 30mcg/0.3mL) PF, MDV 04/25/2021,09/12/2020,08/22/2020 HepA-HepB (Twinrix) 11/28/2002,06/23/2002,2002 Influenza, Inactivated IIV3 (Age 65+ Years) Preserv Free 05/29/2024 Pneumococcal Conj 20-valent (Prevnar 20) 025 Td (Age >=7 Years) 07/04/2004,01/13/1995 Tdap 11/21/2020,01/26/2011 Typhoid (injectable) 05/29/2024 Typhoid, Unspecified 05/23/2002 Zoster (Shingrix-RZV, recombinant) 01/23/2021, Family History Medical History Relation Name Comments Hyperlipidemia Brother 3 Good Health Daughter 2 Cancer Father Deng Skin Other Father Polaris Parkinson's; Hi p Fx; CVA Stroke Father Polaris Stroke Maternal Grandfather Heart Disease Maternal Grandmother [...] on file Legal Sex Female 5:26 AM CLOTH PACKER Gender Identity Not on file Sexual Orientation [...] CDT Oxygen Saturation 100% 05/29/2024 9:31 AM CLOTH PACKER Inhaled Oxygen Concentration - - Weight 68.3 [...] 45-75 09/05/2029, 01/17/2019, 12/23/2018 (Completed outside of [place]), Additional history exists Tetanus booster 11/21/2030 11/21/2020, [...] REFLEX MEASURED LDL Routine 06/03/2023 9:27 AM CLOTH PACKER Hyperlipidemia, unspecified hyperlipidemia type XR DXA BONE DENSITY 2 SITES AXIAL Routine 06/03/2022 9:55 AM CLOTH PACKER Menopause ANTI HCV Routine 12/01/2013 2:50 PM [...] 2D, and 3D visualization was performed using [employer] workstation. FINDINGS: SCAN QUALITY: Markedly redundant [...] health care provider. XR MAMMO BILAT SCREENING [[id number]] CLINICAL HISTORY: This is an asymptomatic 68 y.o. patient. INDICATION FOR EXAM: Mammogram Screening. TECHNIQUE: CC and MLO views were obtained. This study was evaluated with the assistance of Computer-Aided Detection. COMPARISON FILM: Yes 06/03/23 [facility] 06/02/22 [facility] FINDINGS: There are scattered areas of [...] Gabby Franco DO CHEMISTRY Final Resu lt [employer] [facility] [address] [place] [address], [facility] [address] [place] [address] * COMP METABOLIC PANEL (08/16/2024 9:06 AM CDT) [facility] GLUCOSE 82 65 - 99 mg/dL [facility] Comment: Fasting reference interval UREA NITROGEN (BUN) 13 7 - 25 mg/dL [facility] CREATININE 0.94 0.50 - 1.05 mg/dL [facility] EGFR 67 > OR = 60 mL/min/1. 73m2 [facility] BUN/CREATININE RATIO SEE NOTE: - (calc) [facility] Comment: Not Reported: BUN and Creatinine are [...] [facility] ALBUMIN 4.5 3.6 - 5.1 g/dL [facility] GLOBULIN 2.5 1.9 - 3.7 g/dL (calc) [facility] ALBUMIN/GLOBULIN RATIO 1.8 1.0 - 2.5 (calc) [facility] BILIRUBIN, TOTAL 0.8 0.2 - 1.2 mg/dL [facility] ALKALINE PHOSPHATASE 61 37 - 153 U/L [facility] AST 18 10 - 35 U/L [facility] ALT 12 6 - 29 U/L [facility] Blood BLOOD SPECIMEN / Unknown 08/16/2024 9:06 AM CDT 08/16/2024 9:07 AM CDT Gabby Diana Franco DO CHEMISTRY Final Resu lt [employer] [facility] [address] [place] [address], [place] [phone] [facility] [address] [place] [address] * (ABNORMAL) LIPID PANEL W REFLEX MEASURED LDL (06/03/2023 9:27 AM CLOTH PACKER) [facility] CHOLESTEROL,TOTAL 268(H) 100 - 199 mg/dL 06/03/2023 5:38 PM CLOTH PACKER [facility] Comment: Cholesterol, Total Reference Ranges Desirable <200 mg/dL Borderline 200-239 mg/dL High >=240 mg/dL TRIGLYCERIDES 88 <150 mg/dL 06/03/2023 5:38 PM CLOTH PACKER [facility] HDL CHOLESTEROL 78 >40 mg/dL 5:38 PM CLOTH PACKER [facility] NON-HDL CHOLESTEROL 190(H) <145 mg/dl 06/03/2023 5:38 PM CLOTH PACKER [facility] CHOL/HDL RATIO 3.44 <4.50 06/03/2023 5:38 PM CLOTH PACKER [facility] LDL CHOLESTEROL 172(H) <=130 mg/dL 06/03/2023 5:38 PM CLOTH PACKER [facility] VLDL CHOLESTEROL 18 <=30 mg/dL 06/03/2023 5:38 PM CLOTH PACKER [facility] PROVIDER ORDERED STATUS RANDOM 06/03/2023 5:38 PM CLOTH PACKER [facility] Blood BLOOD SPECIMEN / Unknown Venipuncture / Unknown 06/03/2023 9:27 AM CLOTH PACKER 06/03/2023 9:29 AM CLOTH PACKER Gabby Franco DO CHEMISTRY Final Resu lt [facility] [address] [place] [address], [place] * (ABNORMAL) XR DXA BONE DENSITY 2 SITES AXIAL (06/03/2022 9:55 AM CLOTH PACKER) Anatomical Region Laterality Modality Spine, HIPS, HIPL, HIPR Other Impressions 06/09/2022 7:52 AM CLOTH PACKER Osteopenia. RECOMMENDATIONS: The National Osteoporosis Foundation recommends [...] recommended in 3-5 years. Ladan Chen PA-C [facility] 06/09/2022 Narrative 06/09/2022 7:52 AM CLOTH PACKER For Patients: Results are automatically released to your [employer] account once available, in compliance with federal regulations. This means that you may see your results before your provider has had a chance to review them. Please allow 2-3 business days for your provider to comment on the results. XR DXA Bone Mineral Density (BMD) EXAM LOCATION: [facility] [address] [facility] [address] PATIENT NAME: Melissa Valdez DATE OF : [...] two scanners are made by the same thimble press operator. PROCEDURE: Dual-energy x-ray absorptiometry performed with routine [...] ve Non-Reacti ve 12/01/2013 8:30 PM CDT [facility] Blood specimen (specimen) BLOOD SPECIMEN / Unknown Venipuncture / Unknown 12/01/2013 2:50 PM CDT 12/01/2013 2:50 PM CDT [facility] - 12/01/2013 8:30 PM CDT Antibodies to HCV not detected; does not exclude the possibility of exposure to HCV. Yen Brian SUPERVISOR EVAPORATOR SEND OUTS F inal Result [facility]-CEN[facility]AL LABORATORY [address] [place] [address], from Last 3 Months or Most Recently Relevant to Health Maintenance Insurance [place] ONLY MEDICARE PART B HB ONLY [place] HB ONLY BL[place] BLUE MR PB ONLY [id number] [place] [address] [employer] Advance Directives Documents on File Type Date Recorded Patient Manager Process Improvement Expl anation Healthcare Directive 07/03/2020 021 Care Teams Pulley Maintainer Relationship Specialty Start Date End Date Gabby Franco [place] [address] PCP - General Family Practice 06/03/23
== END 2024-09-10 00:44 | disposition home or self-care (01) ==
PROVIDERS: Emergency Provider Family Medicine; PCP Physician Assistant
DX: H43.393 Other vitreous opacities, bilateral (principal)
CPT/HCPCS: 99282; 99283; 99284